=== PATIENT | male | born 1965 | race Caucasian/White ===

== ENCOUNTER → 2019-09-16 14:32 | Outpatient (CLI) | payer OTHER, SELFPAY ==
[2019-09-16 16:23] LABS: Prostate Specific Antigen Scrn 0.426 ng/mL (0.1-4.0)
== END ==
PROVIDERS: Family Provider Family Medicine; PCP Family Medicine; Referring Provider Family Medicine; Visit Provider Family Medicine
DX: N40.0 Benign prostatic hyperplasia without lower urinary tract symptoms (principal)
CPT/HCPCS: 36415; G0103

== ENCOUNTER 2022-07-25 11:40 | Inpatient (IN) | payer OTHER, SELFPAY ==
[2022-07-24 10:40] VITALS: BMI 41.6
[2022-07-25] VITALS (15 sets, daily range): BP systolic 124–194; BP diastolic 68–106; PULSE 93–157; RESP 12–19; TEMP 35.7–37.3; O2SAT 92–104; BMI 41.0
--- NOTE | 2022-07-25 | DI.RAD.S_ITS ---
PROCEDURE: XR LUMBAR SPINE 2-3V INDICATIONS: L5-S1 TLIF TECHNIQUE: 2 intraoperative fluoroscopic views of the lumbar spine were acquired. COMPARISON: [facility], , -SPINE 2-3 VIEWS, 09/13/2014, 14:27. FINDINGS: Intraoperative fluoroscopic images of lumbar spine shows posterior fusion and intervertebral spacer placement at L5-S1 level. IMPRESSION: Fluoro guidance was provided intraoperatively for posterior fusion at L5-S1 level. Dictated by: Duke Blake M.D. on 07/26/2022 at 13:35 Approved by: Duke Blake M.D. on 07/26/2022 at 13:39
[2022-07-25] MEDS: ACETAMINOPHEN 325 MG TABLET 975 MG PO (12:20)
[2022-07-25] MEDS: GABAPENTIN 600 MG TABLET PO (12:22)
[2022-07-25] MEDS: LACTATED RINGERS 1,000 ML 42 ML IV ×2 (12:22→15:04)
[2022-07-25 13:01] LABS: COVID19 -Nasal RAPID Negative (Negative)
--- NOTE | 2022-07-25 13:38 | PM.PREOP ---
Pre-operative Note COVID-19 COVID-19 status: Negative Result date/Date tested (Pos, Neg/Pending): 07/24/22 Criteria for continued procedure: Expected advancement of disease process, Possibility delay results in more complex future surgery or treatment, Increased loss of function, Continuing or worsening of significant or severe pain, Deterioration of the patient's condition or overall health and Delay expected to result in less-positive ultimate med/surg outcome Interval Note History & Physical reviewed/Exam performed by Physician: Yes Changes to H&P: No
[2022-07-25] MEDS: CEFAZOLIN 3 GM IN 0.9 % NACL 3 GM/100 ML PLAST..BAG IV (14:05)
--- NOTE | 2022-07-25 14:36 | SUR.OPER ---
Prone on spine table, head in foam head support, padded chest and pelvic supports, gel pad at knees, lower legs supported by pillows; nipples, genitalia and toes free of pressure, arms secured on foam padded arm boards at <90 degrees abduction. Tape over blanket at thigh secured to table.
[2022-07-25] MEDS: BUPIVACAINE 0.25% (PF) 60 ML, EPINEPHrine 0.3 MG INJ (14:43)
--- NOTE | 2022-07-25 17:03 | PM.OP.1 ---
Operative Date/Time/Diagnoses Date of procedure: 07/25/22 Time of procedure: 13:30 Pre-op diagnosis: 1. L5-S1 spinal stenosis with radiculopathy 2. History of L5-S1 laminectomy with epidural scarring and radiculopathy Post-op diagnosis: same Procedure & Clinicians Procedure: 1. L5-S1 Postero-lateral and posterior interbody fusion 2. L5-S1 interbody cage placement. 3. L5-S1 decompressive laminectomy with bilateral facetecomies 4. L5-S1 Posterior non-segmental instrumentation 5. L4-5 left hemilaminectomy 6. Lisle of bone marrow from iliac crest 7. Utilization of microsurgical technique and operating microscope Same procedure as scheduled: Yes Indications: Patient has been having chronic back pain and worsening lumbar radiculopathy. Patient had history of L5-S1 laminectomy with progressively worsening radiculopathy. Patient failed multiple conservative management with worsening pain weakness and numbness in his lower extremity. Patient has been having difficulty performing activity of daily living. After discussing risks benefits of treatment options, patient elected proceed with surgery. Surgeon: Benita Funez Protective Signal Repairer Helper: nNeka Mosley Click Yes if Unassisted: No Anesthesia Type: General Operative Notes Closure Type: primary Specimen(s): none sent Prosthetic devices, grafts, tissues, transplants, or devices: Globus revolve screws, Rise cage Estimated Blood Loss (mL): 100 Blood products transfused: none Procedure in detail: Patient was seen in the preoperative area. Risks and benefits of the surgery was discussed with the patient. Informed consent was obtained from the patient and placed in the chart. Surgical site was marked. Patient was taken to the operative room. General anesthesia was administered. Prophylactic antibiotic was given to the patient less than 30 min before the incision was made. Patient was placed into a prone position on the Julio Cesar table. Patient's back was then prepped and draped in the sterile fashion. Time-out was performed at this time. Using AP and lateral C-arm imaging the interval between L5-S1 was identified and marked on patient's back. A 2 inch incision 2 in from midline was made on the left side first. The fascia was incised in line with skin incision. Globus MARS retractors was placed inside the incision and docked onto the L5 lamina. Using microsurgical technique and operating microscope, a L5 laminectomy and L5-S1 facetectomy was performed using a Kerrison rongeur. The disc space at L5-S1 was identified. And a total diskectomy was performed at L5-S1 level. The endplates were decorticated using a rasp and shaver. The total diskectomy and decortication was performed at L5-S1 level in order to to accomplish a L5-S1 fusion. The local bone from the laminectomy and facetectomy was saved for local bone grafting. After the total diskectomy and decortication was completed, Globus viacell bone graft material was combined with local bone that was harvested earlier. At this time, a separate skin is incision was made over the iliac crest. A Jamshidi needle was inserted into the iliac crest through a separate skin incision. 5 cc of bone marrow aspiration was obtained through the separate skin incision using a Jamshidi needle from the iliac crest. The bone marrow aspiration was combined with local bone and the Trifecta bone grafting material. The bone grafting material was placed into the L5-S1 interbody space along with a expandable cage. The cage was expanded to its maximum height using the torque limiting screwdriver. At this time the MARS retractor was redirected over the L4 lamina. Using microsurgical technique and operating microscope, a L4-5 heminectomy was performed using the Kerrison rongeur. The ligamentum flavum was also resected at the side of the hemilaminectomy for further decompression of the epidural space. At this time a mirror image incision was made on the right side. The fascia was incised in line with the skin incision. Globus MARS retractor was inserted and docked onto the L5-S1 posterolateral gutter. Using the power drill, posterior-lateral decortication was performed at L5-S1 level until bleeding cortical bone was identified. The remaining bone grafting material was placed into the L5-S1 posterior lateral gutter he order to accomplish posterolateral fusion at the L5-S1 level. Using the double C-arm technique, pedicle screws were placed into the L5 and S1 pedicles bilaterally. This was done by placing the Jamshidi needle into the pedicles, then placing the guidewires over the Jamshidi needle, and finally placing the cannulated screws over the guidewires bilaterally. After the pedicle screws were placed, 2 titanium rods was locked into the heads of the pedicle screws using locking caps and torque limiting screwdriver. After all the hardware was placed, and confirmed with AP and lateral C-arm imaging, the wound was then irrigated with sterile normal saline and packed with Ray-Shayan gauze for 3 min to accomplish hemostasis. After the gauze was removed the deep fascia was closed with #1 Vicryl suture. The subcutaneous layer was closed with 2-0 Vicryl. The skin was closed with skin shanna. Patient tolerated the procedure well. There were no complications. Complications: none Post-operative Condition: stable Disposition: PACU Plan for aftercare: admit to inpatient hospital
[2022-07-25] MEDS: HYDROCODONE/ACET 5/325 TABLET 1 TAB PO (17:38)
[2022-07-25] MEDS: SODIUM CHLORIDE 0.9% 1,000 ML 100 ML IV (18:13)
[2022-07-25] MEDS: HYDROCODONE/ACET 5/325 TABLET 2 TAB PO ×2 (18:16→22:14)
[2022-07-25] MEDS: hydrOXYzine pamoate 25 MG CAPSULE PO (18:17)
[2022-07-25] MEDS: DOCUSATE 100 MG CAPSULE PO (21:07)
[2022-07-25] MEDS: SENNOSIDES 8.6 MG TABLET 17.2 MG PO (21:07)
[2022-07-25] MEDS: CEFAZOLIN 2 GM/100 ML PREMIX 100 ML IV (21:38)
[2022-07-25] MEDS: ATORVASTATIN 20 MG TABLET 80 MG PO (21:40)
[2022-07-26] MEDS: MAG HYDROX/ALUM/SIMETH 30 ML UDC PO ×2 (00:08→04:53)
[2022-07-26 03:55] VITALS: BP 165/90; PULSE 94; RESP 18; TEMP 36.3; O2SAT 96
[2022-07-26] MEDS: HYDROCODONE/ACET 5/325 TABLET 2 TAB PO ×2 (04:04→08:03)
[2022-07-26] MEDS: PANTOPRAZOLE DR 40 MG TABLET PO (05:37)
[2022-07-26] MEDS: SODIUM CHLORIDE 0.9% 1,000 ML 100 ML IV (05:37)
[2022-07-26] MEDS: CEFAZOLIN 2 GM/100 ML PREMIX 100 ML IV (05:39)
[2022-07-26] MEDS: LOSARTAN 50 MG TABLET PO (08:02)
[2022-07-26] MEDS: METFORMIN HCL 500 MG TABLET 1000 MG PO (08:03)
[2022-07-26] MEDS: DOCUSATE 100 MG CAPSULE PO (08:04)
[2022-07-26] MEDS: atenoloL 50 MG TABLET 100 MG PO (08:15)
[2022-07-26] MEDS: FENOFIBRATE, MICRONIZED 67 MG CAPSULE 201 MG PO (08:25)
[2022-07-26] MEDS: GLIMEPIRIDE 2 MG TABLET 1 MG PO (08:25)
[2022-07-26 08:30] VITALS: BP 165/92; PULSE 91; RESP 18; TEMP 36.6; O2SAT 94
--- NOTE | 2022-07-26 09:45 | OT.IP.EVAL ---
Current Diagnoses Intervertebral disc disorders with radiculopathy, lumbar region (07/25/22) Postlaminectomy syndrome, not elsewhere classified (07/25/22) Surgery Performed Operation Date: 07/25/22 13:15 Actual Procedures p L5-S1 TLIF, L4-5 left hemilaminectomy - Benita Funez MD Past Medical History (Last Reviewed 07/26/22 @ 10:46 by Cris Lara PA-C) ADHD COVID-19 virus infection (05/2020) GERD (gastroesophageal reflux disease) HLD (hyperlipidemia) Low platelet count Neuropathy GRAEME on CPAP Sciatica Spinal stenosis Surgical History (Last Reviewed 07/26/22 @ 10:46 by Cris Lara PA-C) History of bilateral carpal tunnel release History of Angella fundoplication Hx of arthroscopy of right knee Hx of microdiscectomy (12/13/14) Hx of repair of left rotator cuff Hx of repair of right rotator cuff S/P UPPP (uvulopalatopharyngoplasty) (~1995) Status post epidural steroid injection Occupational Therapy Inpatient Evaluation/Re-Eval M1 PT/OT-IP Prior Functional Status Start: 07/26/22 07:31 Freq: NEEDED Status: Discharge Protocol: Document 07/26/22 09:40 [facility] (Rec: 07/26/22 09:48 [facility] [id number]) Medical Review Prior Functional Status Medical History Reviewed Yes Diet/Fluid Consistency Regular Communication WNL Mobility and Gait amb outside of house for > 100ft w/walking stick d/t pain Activities of Daily Living and IADL's indep Social History Household Members spouse Living Arrangements Mobile home Number of Floors (Floors) One Floor Number of Stairs To Enter/Railing? 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 M2 OT-IP Current Condition Start: 07/26/22 12:21 Freq: Status: Active Protocol: Document 07/26/22 09:35 [facility] (Rec: 07/26/22 12:29 [facility] [id number]) Occupational Therapy Current Condition Current Condition Evaluation Date 07/26/22 Treatment Diagnosis S/p L5-S1 and L4-5 hemilaminectomy Diagnosis Onset Date 07/25/22 Post Operative Precautions Lumbar Precautions Log Roll,No Twisting,Limit Bending,Lifting Restriction of 10 lbs,Gait Belt above Incisional Area M3 OT- IP Subjective and Pain Start: 07/26/22 12:21 Freq: Status: Active Protocol: Document 07/26/22 09:35 [facility] (Rec: 07/26/22 12:29 [facility] [id number]) OT- Subjective Occupational Therapy Visit Type Type Initial Evaluation Visit Start Time 09:35 Visit Stop Time 09:45 Total Visit Minutes 10 Occupational Therapy Visit Comments Patient Comments Pt already dressed and just finished working with PT. Patient/Caregiver Goals To go home. OT Pain Assessment Pain When Pain Assessed During Mobility Pain Present Pain Present Pain Reported M4 OT- IP ADL's Start: 07/26/22 12:21 Freq: Status: Active Protocol: Document 07/26/22 09:35 [facility] (Rec: 07/26/22 12:29 [facility] [id number]) OT [id number] General Evaluation Self-Feeding Ability Independent OT ADL-Dressing General Eval Lower Body Dressing Ability Standby Assistance Comments OT Dressing Comments Pt able to comfortably cross his legs over to do LB dressing needs. Able to show pt LB equipment needs but pt states if he is having trouble to have his assist. OT ADL-Toileting Comments OT Toileting Comments Practiced if pt able to reach to wipe. Pt states usually sit to wipe and suggested to stand and wipe and use of wet ones would be easier at this time. Pt able to reach to wipe while standing. OT ADL-Bathing Comments OT Bathing Comments Suggested a shower chair or at the very least have his in to assist him. M5 OT- IP IADL's Start: 07/26/22 12:21 Freq: Status: Active Protocol: Document 07/26/22 09:35 [facility] (Rec: 07/26/22 12:29 [facility] [id number]) OT-Instrumental Activities of Daily Living Deficits IADL Deficits Identified Deficits Home Safety Awareness Awareness of Need for Assistance at Home Good Awareness Ability to Problem Solve Emergency Able to Problem Solve Situations Medication Management Medication Management No Deficits Identified Money Management Money Management No Deficits Identified Meal Preparation Meal Preparation No Deficits Identified Pharmacy Affairs Assistant Pharmacy Affairs Assistant Caregiver Provides Assist M6 OT- IP Functional Cognition Start: 07/26/22 12:21 Freq: Status: Active Protocol: Document 07/26/22 09:35 [facility] (Rec: 07/26/22 12:29 [facility] [id number]) Cognitive Factors Limiting Selfcare Function Cognitive Ability Level of Alertness Alert Patient Orientation Name,Age,Birthday,Month,Date, Year,Day of Week,Place, Situation Ability to Follow Commands Able to Follow Multi-Step Commands Memory Description No Deficits Noted Safety Awareness No Deficits Noted Cognitive Comments Cognitive Assessment Comments Pt able to follow back precautions well for all ADL and mobility needs with good safety and understanding. M7 OT- IP Mobility and Balance Start: 07/26/22 12:21 Freq: Status: Active Protocol: Document 07/26/22 09:35 [facility] (Rec: 07/26/22 12:29 [facility] [id number]) OT-Transfer Assessment Sit to and From Stand Sit to and from Stand Standby Assistance Transfers Transfer Ability Standby Assistance Technique Transfer Destination Chair,Toilet Transfer Technique Stand Step Pivot Devices Transfer Assistive Devices Gait Belt Comments Mobility Comments Pt able to get around in the room without a device at this time with SBA. OT- Balance Assessment Sitting Balance and Reactions Static Sitting Balance Ability Normal Dynamic Sitting Balance Ability Normal Standing Balance and Reactions Static Standing Balance Ability Normal Dynamic Standing Balance Ability Good M9 OT- IP Assessment and Plan Start: 07/26/22 12:21 Freq: Status: Active Protocol: Document 07/26/22 09:35 [facility] (Rec: 07/26/22 12:29 [facility] [id number]) OT Summary Assessment and Plan Potential Rehabilitation Potential Excellent Analytic Complexity at Evaluation Low Summary OT Impairments Pain,Bathing Progress Towards Goals Progressing Toward Goals Assessment Summary Pt low complexity and main barrier is pain. Pt has a supportive at home to assist pt with his needs. Pt already able to use the toilet , dress, and transfer on his own. Goals Bathing Goal Independent Days to Meet Goals 1 Frequency of Treatment Frequency Of Treatment Once a Day Treatment Plan OT Treatment Plan ADL Training,Functional Mobility,Patient/Family Education,Discharge Planning Discharge Recommendations OT Discharge Recommendations Home with Assistance Home Equipment Needs shower chair? Transportation Needs at Discharge Private Vehicle
--- NOTE | 2022-07-26 09:48 | PT.IIE ---
Current Diagnoses Intervertebral disc disorders with radiculopathy, lumbar region (07/25/22) Postlaminectomy syndrome, not elsewhere classified (07/25/22) Surgery Performed Operation Date: 07/25/22 13:15 Actual Procedures p L5-S1 TLIF, L4-5 left hemilaminectomy - Benita Funez MD Surgical History (Last Reviewed 07/25/22 @ 12:19 by Inga Gonzalez, RN) History of bilateral carpal tunnel release History of Angella fundoplication Hx of arthroscopy of right knee Hx of microdiscectomy (12/13/14) Hx of repair of left rotator cuff Hx of repair of right rotator cuff S/P UPPP (uvulopalatopharyngoplasty) (~1995) Status post epidural steroid injection Medical History (Last Reviewed 07/25/22 @ 12:19 by Inga Gonzalez, MARIMAR) ADHD COVID-19 virus infection (05/2020) GERD (gastroesophageal reflux disease) HLD (hyperlipidemia) Low platelet count Neuropathy GRAEME on CPAP Sciatica Spinal stenosis Physical Therapy Inpatient Evaluation/Re-Eval M1 PT/OT-IP Prior Functional Status Start: 07/26/22 07:31 Freq: NEEDED Status: Active Protocol: Document 07/26/22 09:40 [facility] (Rec: 07/26/22 09:48 [facility] [id number]) Medical Review Prior Functional Status Medical History Reviewed Yes Diet/Fluid Consistency Regular Communication WNL Mobility and Gait amb outside of house for > 100ft w/walking stick d/t pain Activities of Daily Living and IADL's indep Social History Household Members spouse Living Arrangements Mobile home Number of Floors (Floors) One Floor Number of Stairs To Enter/Railing? 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 PT-IP Current Condition Start: 07/26/22 07:31 Freq: NEEDED Status: Active Protocol: Document 07/26/22 09:40 [facility] (Rec: 07/26/22 09:48 [facility] [id number]) Physical Therapy Current Condition Current Condition Evaluation Date 07/26/22 Treatment Diagnosis L5-S1 TLIF M3 PT-IP Subjective Start: 07/26/22 07:31 Freq: NEEDED Status: Active Protocol: Document 07/26/22 09:40 [facility] (Rec: 07/26/22 09:48 [facility] [id number]) Subjective Physical Therapy Visit Type Type Initial Evaluation Visit Start Time 09:11 Visit Stop Time 09:40 Total Visit Minutes 39 Number of SUPERINTENDENT CONTAINER TERMINAL Visits 0 Physical Therapy Visit Comments Patient Comments Pt notes he feels better sinc back surgery and hopes to go home today Therapy Pain Assessment Pain When Pain Assessed During Mobility Pain Present Pain Present Pain Reported Location back Description Aching M4 PT-IP Mobility and Gait Start: 07/26/22 07:31 Freq: NEEDED Status: Active Protocol: Document 07/26/22 09:40 [facility] (Rec: 07/26/22 09:48 [facility] [id number]) PT-Bed Mobility Assessment Rolling Type of Rolling Log Rolling,Roll to Left Level of Assist Standby Assistance Supine to Sit Supine to Sit Standby Assistance Sit to Supine Sit to Supine Standby Assistance Scooting Scooting to Edge of Bed Independent PT-Transfer Assessment Sit to and From Stand Sit to and from Stand Independent,Use of Upper Extremities Equipment Transfer Assistive Device Gait Belt Orthotic/Prosthetic Devices or Brace: No Transfers Transfer Destination Bed Transfer Technique Stand Step Pivot Transfer Ability Level of Assist Independent Comments Mobility Comments Pt was safe w/all mobility w/o AD and showed no signs of imbalance. Pt left with call light in reach & OT in room Gait Assessment Gait Gait Assistance Required: Standby Assistance Distance (Feet) 150 Able to Maintain Weight Bearing Status Yes During Gait Assistive Devices Assistive Device Gait Belt Orthotic/Prosthetic Devices or Brace: No Gait Deviations General Gait Pattern Lateral Trunk Lean Factors Limiting Gait Function Factors Limiting Gait Function Decreased Strength,Pain Stair Climbing Assessment Evaluation Level of Assist On Stairs Standby Assistance Devices Stair Climbing Assistive Devices Right Railing Technique/Endurance Stair Climbing Direction Ascend and Descend Stair Climbing Technique Step Over Step Number of Steps Climbed 3 Query Text: Stair Climbing Set # Repetitions (reps) 1 PT-Balance Assessment Sitting Balance and Reactions Static Sitting Balance Ability Normal Dynamic Sitting Balance Ability Normal Standing Balance and Reactions Static Standing Balance Ability Normal Dynamic Standing Balance Ability Normal Device Used none M5 PT-IP Objective Assessments Start: 07/26/22 07:31 Freq: NEEDED Status: Active Protocol: Document 07/26/22 09:40 [facility] (Rec: 07/26/22 09:48 [facility] [id number]) Orientation Orientation/Cognition Level of Alertness Alert Language Function Ability No Deficits Noted Safety Awareness Understands Safety Issues Memory Description No Deficits Noted Gross Range of Motion Lower Extremity ROM Assessment Within Functional Limits Strength Lower Extremity Strength Assessment Within Functional Limits M6 PT-IP Treatment Start: 07/26/22 07:31 Freq: NEEDED Status: Active Protocol: Document 07/26/22 09:40 [facility] (Rec: 07/26/22 09:48 [facility] [id number]) Physical Therapy Treatment Education Education Provided Precautions,Weight Bearing Status,Post-Op Packet,Safety M7 PT-IP Assessment and Plan Start: 07/26/22 07:31 Freq: NEEDED Status: Active Protocol: Document 07/26/22 09:40 [facility] (Rec: 07/26/22 09:48 [facility] [id number]) PT Summary Assessment and Plan Potential Rehabilitation Potential Excellent Status of Condition at Evaluation Stable Summary Impairments Pain,ROM,Strength,Balance,Gait ,Activity Tolerance Assessment Summary Pt presents day one S/p L5-S1 TLIF w/good pain control and good motivation. He did well with all mobility and was indep or SBA with all. He is cleared by PT to go home once medically cleared. If pt stays for any reason, cont PT to work on gait stability & ovearll mobility as needed. Goals Bed Mobility Goal Independent Transfer Goal Independent Gait Goal Independent Gait Distance 200ft Other Goals up/down 5 stairs w/rail indep Days to Meet Goals 4 Frequency of Treatment Frequency Of Treatment Twice a Day Treatment Plan Physical Therapy Treatment Plan Bed Mobility Training,Transfer Training,Gait Training, Therapeutic Exercise,Balance Retraining,Post Op Education, Discharge Planning,Hot or Cold Pack,Neuromuscular Re-ed, Manual Therapy Precautions Lumbar Precautions Log Roll,No Twisting,Limit Bending,Lifting Restriction of 10 lbs,Gait Belt above Incisional Area Weight Bearing Status Weight Bearing Status Weight Bear as Tolerated Recommendations To Nursing Amount of Assist Needed Standby Assistance Discharge Recommendations PT Discharge Recommendations Home with Assistance, Outpatient PT Transportation Needs at Discharge Private Vehicle
--- NOTE | 2022-07-26 10:43 | PM.DS.1 ---
History of Present Illness History of Present Illness Date Patient Seen: 07/26/22 Time Patient Seen: 08:00 Chief complaint: TLIF Lumbar Narrative: Patient is complaining of [id number] low back pain this morning. He is still having some numbness and tingling down his legs, left worse than right. He notes that these symptoms have been improving since surgery. He is not worked with physical therapy or occupational therapy yet, but is overall doing well and would like to be discharged home today after PT. Discharge Providers Provider Date of admission: 07/25/22 11:40 Discharge Date: 07/26/22 Consults: 07/25/22 17:47 Consult to Occupational Therapy Evaluate & Treat Comment: Physician Instructions: Evaluate and treat Consult to Physical Therapy Evaluate & Treat Comment: Physician Instructions: Evaluate and Treat Discharge provider: Cris Lara PA-C Summary Hospital Course Discharge Diagnosis: 1. L5-S1 spinal stenosis with radiculopathy 2. History of L5-S1 laminectomy with epidural scarring and radiculopathy Hospital Course: Operative Date/Time/Diagnoses Date of procedure: 07/25/22 Time of procedure: 13:30 Procedure & Clinicians Procedure: 1. L5-S1 Postero-lateral and posterior interbody fusion 2. L5-S1 interbody cage placement. 3. L5-S1 decompressive laminectomy with bilateral facetecomies 4. L5-S1 Posterior non-segmental instrumentation 5. L4-5 left hemilaminectomy 6. [place] of bone marrow from iliac crest 7. Utilization of microsurgical technique and operating microscope Same procedure as scheduled: Yes Indications: Patient has been having chronic back pain and worsening lumbar radiculopathy.? Patient had history of L5-S1 laminectomy with progressively worsening radiculopathy. Patient failed multiple conservative management with worsening pain weakness and numbness in his lower extremity.? Patient has been having difficulty performing activity of daily living.? After discussing risks benefits of treatment options, patient elected proceed with surgery. Surgeon: Benita Funez Snath Handle Assembler: Nneka Mosley Click Yes if Unassisted: No Anesthesia Type: General Operative Notes Closure Type: primary Specimen(s): none sent Prosthetic devices, grafts, tissues, transplants, or devices: Globus revolve screws, Rise cage Estimated Blood Loss (mL): 100 Blood products transfused: none Status at Discharge Cognitive/behavioral status at discharge: at baseline, oriented Functional status at discharge: uses cane/walker Overall status at discharge: patient is progressing back to baseline Exam Vital Signs (past 8 hours): - 07/26/22 03:55 07/26/22 08:30 Temperature 97.4 F L 97.8 F Pulse Rate 94 H 91 H Respiratory Rate 18 18 Blood Pressure 165/90 H 165/92 H Pulse Oximetry 96 94 Oxygen Flow Rate 0 0 Oxygen Delivery Method Room Air Oxygen Flow Rate 0 Narrative Exam Narrative: Pleasant 56-year-old male, resting comfortably in his chair, no acute distress. Lumbar dressing demonstrates saturation on the right lateral incision, no surrounding erythema, induration, or michelle pus. Bilateral lower extremity: Motor functions are grossly intact and calves are soft and nontender to palpation. Left lateral malleoli sensation is decreased as compared to right, patient notes this is his baseline. Objective Labs Labs: Laboratory Results - last 24 hr 07/25/22 12:32 SARS-CoV-2 (PCR) Negative [facility] Medical History ADHD COVID-19 virus infection (05/2020) GERD (gastroesophageal reflux disease) HLD (hyperlipidemia) Low platelet count Neuropathy GRAEME on CPAP Sciatica Spinal stenosis Surgical History History of bilateral carpal tunnel release History of Ang[place] fundoplication Hx of arthroscopy of right knee Hx of microdiscectomy (12/13/14) Hx of repair of left rotator cuff Hx of repair of right rotator cuff S/P UPPP (uvulopalatopharyngoplasty) (~1995) Status post epidural steroid injection Social History household members: spouse Smoking Status: Former smoker alcohol intake: current Discharge Assessment & Plan Assessment and Plan Assessment: -stable status post L5-S1 TLIF, L4-5 left hemilaminectomy Plan of Treatment: -mobilize with PT/OT. Weightbearing as tolerated with front wheel walker or cane. No bending, lifting, twisting x6 weeks -continue with multimodal pain management -DC home today once cleared by PT/OT Discharge Plan Discharge Plan Patient Disposition: Home Discharge orders & Medications Prescriptions: New acetaminophen 325 mg Tablet 325 mg PO Q4H MDD Max 3000 mg per day PRN (Reason: Pain, Mild (1-3)) Qty: 90 0RF docusate sodium 100 mg Capsule 100 mg PO BID PRN (Reason: constipation) Qty: 30 0RF hydrocodone-acetaminophen 5-325 mg Tablet See Rx Instructions .ROUTE .COMPLEX PRN (Reason: Pain, Severe (7-10)) Qty: 42 0RF Rx Instructions: Take 1-2 tablets by mouth every 4 hours as needed for moderate to severe postop pain. -Max 3000 mg of acetaminophen per day from all sources hydroxyzine pamoate 25 mg Capsule 25 mg PO Q4HR PRN (Reason: Muscle spasm/pain/nausea) Qty: 40 0RF Continued [1 touch delica vero] See Rx Instructions .ROUTE .COMPLEX Qty: 90 Rx Instructions: See Rx Instructions [[address]] See Rx Instructions .ROUTE .COMPLEX Qty: 90 Rx Instructions: See Rx Instructions fenofibrate nanocrystallized [Tricor] 145 mg tablet 145 mg PO DAILY Qty: 90 3RF metformin [Glucophage] 500 mg tablet See Rx Instructions PO BIDCC Qty: 450 1RF Dose Instruction: PO BIDCC; Patient Comments: Pt states he takes 1000mg bid Rx Instructions: 2 tabs in am and 2 tabs in pm PO BIDCC; losartan 50 mg tablet 50 mg PO DAILY sildenafil (pulm.hypertension) 20 mg tablet See Rx Instructions PO ONCE PRN (Reason: sexual activity) Qty: 100 5RF Rx Instructions: 1-5 tabs as directed PO once PRN; glimepiride 2 mg Tablet 1 mg PO QAM Rx Instructions: administer with breakfast alprazolam [Xanax] 0.5 mg tablet 0.5 mg PO Q12HP PRN (Reason: Anxiety) esomeprazole magnesium [Nexium] 40 mg Capsule,Delayed Release(Dr/Ec) 40 mg PO Q OTHER DAY Rybelsus 3 mg Tablet 3 mg PO DAILY atenolol 50 mg tablet 100 mg PO Q DAY icosapent ethyl 1 gram Capsule 2 g PO BID rosuvastatin 40 mg Tablet 40 mg PO DAILY (DME) Disabled Parking wafer 0 .ROUTE .MEDSUPPLY Rx Instructions: As directed Discontinued ibuprofen [Advil] 200 mg Tablet 200 mg PO Q4H PRN (Reason: Pain) acetaminophen 500 mg Tablet 1,500 mg PO Q4H Follow up/Referrals: Benita Funez MD [Physician] - As previously scheduled (10-14 days for postoperative visit) Diet/Activity/Treatments Diet: Diet as Tolerated Activity: Up and walking as tolerated Other treatments: Medications: -max 3000 mg per day of acetaminophen, from all sources -[place] 5/325: 1-2 tablets every 4 hours as needed for moderate to severe postoperative pain (narcotic pain med) -As needed medications: -Ducolax and /or MiraLax as needed for constipation from narcotic pain medications. -Pepcid AC as needed for stomach upset. -Vistaril (hydroxyine) 25mg 1 tab every 4 hours as needed for spasms/pain/nausea. Dressing/Wound care: -Keep dressing in place until postoperative follow-up office visit. -Okay to shower. Keep wound out of direct water stream. Can use PressNSeal plastic wrap to protect from shower stream. No soaking or submerging until all the scabs fall off (approximately 6 weeks). -Please call the office if dressing becomes wet, soiled, or saturated. Activities: -Limit bending, lifting, twisting x6 weeks. No deep bending (more than 90 degrees) or twisting at the waist. No lifting > 20 pounds. -Walk frequently. -Weight-bearing as tolerated. Use front wheeled walker, and progress to cane when safe. -Continue with home exercises as directed by your physical therapist. -Ice your incision as needed for pain/inflammation/swelling. Protect your skin with a folded pillowcase. -Incentive Spirometer (breathing device from hospital): 5-10xs every hour while awake for the first 1-2 weeks. Follow-up: -Follow-up with your surgeon or PA in the office in 10-14 days after surgery. -Follow-up with your surgeon 6 weeks postoperatively. Call the office if you have chest pain, shortness of breath, significant swelling that will not resolve with elevating, fever over 101?, significantly worsening pain, or are concerned you might need to go to the Emergency Room. [facility]: [phone] Skin/Wound/Dressing Care Report to your healthcare provider any signs of infection, such as:: chills, fever, night sweats, increased pain, unusual drainage and unusual redness Dressing: Keep dressing clean, dry, and intact until 2 week follow-up visit with Orthopedics. If dressing becomes wet please call our office for dressing change. Visit Report/Discharge Packet Instructions: DI for Transforaminal Lumbar Interbody Fusion Stand Alone Forms: Patient Portal/API, Stroke Signs & Symptoms, Surgery Discharge Quality VTE Deep Vein Thrombosis/Pulmonary Embolism Present on Admission: No
== END 2022-07-26 12:06 | disposition home or self-care (01) | DRG 455 ==
PROVIDERS: Admitting Provider Orthopaedic Surgery Orthopaedic Surgery of the Spine; Referring Provider Orthopaedic Surgery Orthopaedic Surgery of the Spine; Visit Provider Orthopaedic Surgery Orthopaedic Surgery of the Spine
PROC: 0SG30AJ Fusion of Lumbosacral Joint with Interbody Fusion Device, Posterior Approach, Anterior Column, Open Approach (ICD-10-PCS; principal; 2022-07-25 13:15)
DX: M48.07 Spinal stenosis, lumbosacral region (principal); M48.061 Spinal stenosis, lumbar region without neurogenic claudication; M51.16 Intervertebral disc disorders with radiculopathy, lumbar region; E11.9 Type 2 diabetes mellitus without complications; K21.9 Gastro-esophageal reflux disease without esophagitis; E78.5 Hyperlipidemia, unspecified; F17.220 Nicotine dependence, chewing tobacco, uncomplicated; Z79.84 Long term (current) use of oral hypoglycemic drugs
CPT/HCPCS: 72100; 76000; 82962; 87635; 97161; 97165; 97535; C9803; C1713; C1831; J0171; J0330; J0690; J1100; J1170; J1815; J2405; J2704; J3010